=== PATIENT | male | born 1990 | race Caucasian/White ===

== ENCOUNTER 2021-12-23 23:44 | Emergency (ER) | payer OTHER ==
[~2021-12-23] VITALS: Ht 182.9 cm; Wt 111.4 kg
[2021-12-24] MEDS ORDERED: BACITRACIN 28 GM OINTMENT TP ONE (03:00)
[2021-12-24] MEDS ORDERED: IBUPROFEN 600 MG TABLET PO ONE (03:00)
[2021-12-24] MEDS ORDERED: IBUP-1554 PO (03:52)
[2021-12-24 04:00] VITALS: BP 135/71
== END 2021-12-24 01:00 | disposition home or self-care (01) ==
LOC: EMS 23:49
DX: S92.512A Displaced fracture of proximal phalanx of left lesser toe(s), initial encounter for closed fracture (principal); S63.602A Unspecified sprain of left thumb, initial encounter; W22.8XXA Striking against or struck by other objects, initial encounter; Y93.89 Activity, other specified; Y92.89 Other specified places as the place of occurrence of the external cause; Y99.8 Other external cause status
CPT/HCPCS: 29550; 99284; 73140-TC; 73660-TC; Z7502; Z7610